=== PATIENT | female | born 2000 | race Caucasian/White ===

== ENCOUNTER 2024-03-23 11:55 | Emergency (ER) | payer OTHER, SELFPAY ==
--- NOTE | ~2024-03-23 | XR_ITS ---
XR chest 2V Ordering provider: Kelsey Morales PA-C History: 23 years Female with . chest tightness, anxiety . Comparison: None. FINDINGS: MEDIASTINUM: The cardiac silhouette is not enlarged. LUNGS: No infiltrates, effusions or pneumothorax. OTHER: No free air under the diaphragm. IMPRESSION: No acute cardiopulmonary pathology. Reviewed, dictated and finalized at location A.
[2024-03-23 12:13] VITALS: BP 126/85; PULSE 120; RESP 16; TEMP 37.2; O2SAT 98
[2024-03-23 12:14] VITALS: BP 126/85; PULSE 120; RESP 16; TEMP 37.2; O2SAT 98
--- NOTE | 2024-03-23 12:19 | ECG_ITS ---
Test Date: 2024-03-23 12:25:29 Measurements Intervals [place] Rate: 123 P: 78 VT: 164 QRS: 47 QRSD: 78 T: 62 QT: 300 QTc: 431 Interpretive Statements SINUS TACHYCARDIA MINOR RIGHT VENTRICULAR CONDUCTION DELAY [RSR (QR) IN V1/V2] ABNORMAL RHYTHM ECG No previous ECG available for comparison Electronically Signed On 03-23-2024 17:14:51 CDT by Jose C Woodruff M.D.
[2024-03-23] MEDS: LORazepam (*CRX) 0.5 MG TABLET PO (13:39)
--- NOTE | 2024-03-23 13:46 | ED.ANXIETY ---
HPI - Anxiety General Chief Complaint: Anxiety Stated Complaint: anxiety Time Seen by Provider: 03/23/24 13:11 Source: patient Mode of arrival: EMS Limitations: no limitations History of Present Illness HPI narrative: Patient is a 23-year-old female who presents the ED via EMS with report of anxiety. Patient reports she had difficulty sleeping last night due to persistent anxiety. She states she has been over thinking everything and cannot seem to relax. She reported having recurrent panic attacks throughout the night into today, which prompted her to call EMS. She does admit to feeling very anxious currently. She takes venlafaxine for her anxiety, is also on Strattera for ADHD. Does see a psychiatrist and was supposed to see them today but was feeling too anxious to go to the appointment. Denies SI/HI, known trigger to anxiety. Does report mild chest tightness earlier today. Related Data Allergies Allergy/AdvReac Type Severity Reaction Status Date / Time No Known Allergies Allergy Verified 03/23/24 13:39 Review of Systems Review of Systems: CONSTITUTIONAL: Denies fever, chills, or sweats. CARDIOVASCULAR: See HPI GASTROINTESTINAL: Denies abdominal pain, nausea, vomiting NEUROLOGIC: Denies headache, dizziness, numbness, or weakness. PSYCHIATRY: See HPI All systems reviewed & are unremarkable except as noted in HPI and below PMFSH Social History Social History Substance use type: former substance user and marijuana Exam Narrative: GENERAL: Anxious appearing, well-nourished, non-toxic, in no acute distress. HEAD: Normocephalic, atraumatic. RESPIRATORY: Airway patent, respirations nonlabored. Clear to auscultation bilaterally, no rales, rhonchi, wheezing. CARDIOVASCULAR: Tachycardic with regular rhythm without murmurs, rubs, or gallops. MUSCULOSKELETAL: Moves all extremities. No gross deformities. SKIN: Warm, dry, normal color. NEURO: A&O X3. Speech clear. No focal deficits. PSYCHIATRIC: Anxious, trembling, trouble sitting still. Course Vital Signs Vital signs: Vital Signs Temperature 98.9 F 03/23/24 12:13 Pulse Rate 120 H 03/23/24 12:13 Respiratory Rate 16 03/23/24 12:13 Blood Pressure 126/85 03/23/24 12:13 Pulse Oximetry 98 03/23/24 12:13 Temperature 98.4 F 03/23/24 14:10 Pulse Rate 85 03/23/24 14:10 Respiratory Rate 16 03/23/24 14:10 Blood Pressure 136/89 03/23/24 14:10 Pulse Oximetry 99 03/23/24 14:10 Oxygen Delivery Room Air 03/23/24 12:14 MDM - Anxiety MDM Narrative Medical decision making narrative: Patient presented to ED with anxiety/ panic attack. Tachycardic upon arrival. In no acute distress. Does appear and admit to being very anxious. EKG with sinus tachycardia, no significant ST changes. Labs unremarkable. Troponin undetectable. Electrolytes within normal range. Urine with 2+ ketones, some RBC, no significant signs of infection. Moderate squamous cells. Sent for culture. Patient denies any urinary complaints. Urine drug screen positive for cannabinoids, otherwise negative. ETOH negative. Chest x-ray clear. Patient was given 0.5 mg Ativan in the ED. She is feeling much better on re-evaluation. Resting comfortably. Vital signs have improved. Tachycardia resolved. She feels much more at ease. Feel she is safe for discharge home at this time. Advised patient to follow closely with psychiatrist for further evaluation. Will supply very small course of Ativan for home use for panic attacks. She continues to deny SI/HI. Given strict return precautions. She is in agreement with plan and feels comfortable going home. D/C in stable condition. Medical Records Attestation: I reviewed the patient's medical records. Lab Data Attestation: I reviewed the patient's lab results. 03/23/24 13:45 03/23/24 13:45 Labs: Lab Results 03/23/24 08/0
[2024-03-23 14:07] LABS: Basophils Absolute Auto 0.1 K/mm3 (0.0-0.1); Basophils Percent Auto 0.6 % (0.2-1.2); Eosinophils Absolute Auto 0.1 K/mm3 (0-0.3); Eosinophils Percent Auto 0.7 % (0-4.4); Hemoglobin 15.1 g/dL (12.0-15.0); Immature Granulocyte Absolute 0.03 K/mm3 (0.00-0.031); Immature Granulocyte Percent A 0.4 % (0-0.5); Lymphocytes Absolute Auto 1.67 K/mm3 (0.9-3.2); Lymphocytes Percent Auto 20.4 % (18.3-44.2); Mean Corpuscular HGB Conc 32.8 g/dl (32-36); Mean Corpuscular Volume 88.5 fl (80-100); Mean Platelet Volume 10.2 fl (7.4-10.4); Monocytes Absolute Auto 0.5 K/mm3 (0.1-0.6); Monocytes Percent Auto 6.5 % (2.6-8.5); Neutrophils Absolute Auto 5.8 K/mm3 (1.3-6.7); Neutrophils Percent Auto 71.4 % (45.5-73.1); Platelet Count Result 306 k/mm3 (150-375); Red Cell Distribution Width 12.8 % (11.5-14.5); White Blood Count 8.2 K/mm3 (4.5-10.0)
[2024-03-23 14:10] VITALS: BP 136/89; PULSE 85; RESP 16; TEMP 36.9; O2SAT 99
[2024-03-23 14:15] LABS: Ethanol < 10 mg/dL (<10)
[2024-03-23 14:16] LABS: Alanine Aminotransferase 21 U/L (6-35); Albumin Level 4.8 g/dL (3.5-5.1); Alkaline Phosphatase 61 U/L (38-126); Anion Gap 12 mmol/L (4-12); Aspartate Amino Transferase 24 U/L (14-36); Bilirubin,Total 0.7 mg/dL (0.2-1.3); Blood Urea Nitrogen 11 mg/dL (7-17); Calcium 9.8 mg/dL (8.4-10.2); Carbon Dioxide 24 mmol/L (22-30); Chloride 104 mmol/L (98-107); Estimated CRCL calculation 82 ml/min; Estimated Glomerular Filt Rate > 60; Glucose 88 mg/dL (65-110); Potassium 3.9 mmol/L (3.4-5.0); Sodium 140 mmol/L (137-145)
[2024-03-23 14:27] LABS: Troponin I < 0.012 ng/mL (0.000-0.034)
[2024-03-23 14:39] LABS: BEDSIDEPREGUCG Negative
[2024-03-23 14:48] LABS: Add Urine Microscopic? YES; Appearance Urine Turbid (Clear); Bacteria Urine 2+ /hpf; Bilirubin Urine Negative (Negative); Blood Urine 2+ (Negative); Color Urine Yellow (Yellow); Glucose Urine UA Negative (Negative); Ketones Urine 2+ mg/dL (Negative); Leukocyte Esterase Ur Trace LEU/UL (Negative); Nitrate Urine Negative (Negative); Non Pathogenic Casts 0-2; Protein Urine Trace mg/dL (Negative); Specific Grav Ur 1.022 (1.001-1.035); Squamous Epithelial Cell Urine Moderate /hpf (Few); WBC Urine 0-5 /hpf (0-3)
[2024-03-23 15:29] LABS: Amphetamine Screen Urine Negative (Negative); Barbiturate Screen Urine Negative (Negative); Benzodiazepines Screen Urine Negative (Negative); Cannabinoid Screen Urine Positive (Negative); Cocaine Screen Urine Negative (Negative); Methadone Screen Urine Negative (Negative); Opiate Screen Urine Negative (Negative); Phencyclidine Screen Urine Negative (Negative)
[2024-03-23 15:53] LABS: Magnesium 2.2 mg/dL (1.6-2.3)
== END 2024-03-23 15:50 | disposition home or self-care (01) ==
PROVIDERS: Emergency Medicine; Emergency Provider Physician Assistant
DX: F41.9 Anxiety disorder, unspecified (principal); R00.0 Tachycardia, unspecified
CPT/HCPCS: 36415; 71046; 80053; 80307; 81001; 81025; 83735; 84484; 85025; 93005; 99284; A9270

== ENCOUNTER 2025-02-04 09:21 | Emergency (ER) | payer OTHER, SELFPAY ==
[2025-02-04 09:32] VITALS: BP 119/78; PULSE 79; RESP 14; TEMP 36.6; O2SAT 100
[2025-02-04] MEDS: TETANUS,DIPHTHERIA,AC PERTUSSIS ADULT (0.5 ML) BOOSTRIX IM (10:20)
[2025-02-04] MEDS: LIDOCAINE 1% LOCAL INJ 2 ML AMPUL 4 ML INFILTRATE (10:20)
--- NOTE | 2025-02-04 11:32 | ED_ITS ---
HPI - Wound/Laceration General Chief Complaint: Wound/Laceration Stated Complaint: Fell through shower, have piece of glass left hand Time Seen by Provider: 02/04/25 10:00 Source: patient, family and RN notes reviewed Mode of arrival: ambulatory Limitations: no limitations History of Present Illness HPI narrative: 24-year-old female presents [facility] complaining of laceration of left hand and fall. Patient slipped and fell in the shower, when she fell she broke the glass shower door as well. Patient denies hitting her head, neck pain, back pain, or any loss of consciousness. Patient reports she has multiple pieces of glass to believes imbedded in her skin. Patient has a piece of glass in the palm of her left hand and a [place] class imbedded in her right medial thigh. Patient is unsure of her tetanus status. Patient has a laceration on left palm of her hand. Patient has numerous small scratches in cuts throughout her extremities. Patient denies any uncontrolled bleeding, numbness, tingling, or any other injuries. Related Data Home Medications ?Medication ?Instructions ?Recorded ?Confirmed ?Last Taken ?Type olanzapine 2.5 mg tablet mg 02/04/25 Unknown History vilazodone 40 mg tablet mg 02/04/25 Unknown History Allergies Allergy/AdvReac Type Severity Reaction Status Date / Time tree nut Allergy Severe Swelling Verified 02/04/25 09:42 Review of Systems Review of Systems: CONSTITUTIONAL: Denies fever, chills, or sweats. EYES: Denies visual changes, redness, or discharge. ENT: Denies rhinorrhea, congestion, sore throat, or otalgia. CARDIOVASCULAR: Denies chest pain, palpitations, or edema. RESPIRATORY: Denies cough or dyspnea. GASTROINTESTINAL: Denies abdominal pain, nausea, vomiting, or diarrhea. GENITOURINARY: Denies dysuria or hematuria. SKIN: Denies rash or itching. Positive for laceration retained foreign body. MUSCULOSKELETAL: Denies back pain, joint pain, or myalgia. NEUROLOGIC: Denies headache, numbness, or weakness. PSYCHIATRIC: Denies anxiety or depression. All other systems reviewed are negative, except as documented in HPI. [facility] Social History Social History Substance use type: former substance user and marijuana Comments At the time of my signature, I reviewed and agree with the nursing past medical, surgical, social, and family history. There is no relevant family history pertinent to the patient complaint. Exam Narrative: GENERAL: This is a well-nourished, well-developed adult, in no apparent distress. They are non ill-appearing, nontoxic appearing. HEAD: normocephalic, atraumatic. EYES: Sclera clear/white. Conjunctiva normal. Vision is grossly intact. Extraocular movements intact. Pupils PERRLA. No subconjunctival hemorrhage or hyphema. EARS: External ears normal, Hearing grossly intact. NOSE: External nose normal THROAT: Mucous membranes moist, NECK: Neck supple, CARDIOVASCULAR: Regular rate and rhythm RESPIRATORY: Respiratory rate normal, respiratory effort nonlabored, no respiratory distress SKIN: Numerous superficial scratches, cuts, lacerations throughout the patient's upper and lower extremities. These wounds are well approximated and closed. There is a laceration measuring approximately 1 cm long to the patient's left palmar surface of hand. There is retained foreign body that appears to be glass in the left hand. There is another retained foreign body in the right lower medial thigh that appears to be glass. Neurovascular status intact distal to injuries. Patient can wiggle her left fingers, can make a fist, stop sign, thumbs-up sign. Patient can feel me touch the tips of her fingers. Put a refill less than 2 seconds. Left radial pulse 2 +and palpable. NEURO: awake, alert, and oriented to person, place and time. There were no obvious focal neurologic abnormalities. EXTREMITIES: No joint tenderness, effusion, or edema noted. BACK: Nontender without deformity. Course Course Emergency Course: Portions of this record may have been created with voice recognition software Level of Care: Express Care Visit Vital Signs Vital signs: Vital Signs Temperature 97.8 F 02/04/25 09:32 Pulse Rate 79 02/04/25 09:32 Respiratory Rate 14 02/04/25 09:32 Blood Pressure 119/78 02/04/25 09:32 Pulse Oximetry 100 02/04/25 09:32 Oxygen Delivery Room Air 02/04/25 09:32 Temperature 97.8 F 02/04/25 09:32 Pulse Rate 79 02/04/25 09:32 Respiratory Rate 14 02/04/25 09:32 Blood Pressure 119/78 02/04/25 09:32 Pulse Oximetry 100 02/04/25 09:32 Oxygen Delivery Room Air 02/04/25 09:32 Reviewed Procedures Foreign Body Removal Foreign Body #1: Foreign Body Removal Date: 02/04/25 Foreign Body Removal Time: 10:30 Time Out Performed: no Site: left and hand Description of foreign body: other (Class) Sedation/Analgesia: none Technique: removal with forceps Confirmed by:: direct visualization Complications: none Post-procedure exam: awake, alert Neurovascular: normal distal pulse, normal capillary fill, distal light touch sensation intact, distal motor function normal, no signs of compartment syndrome and no change from pre-procedure Foreign Body Removal Narrative: Last measured approximate 1 cm x 1 cm. Patient tolerated procedure well Foreign Body #2: Foreign Body Removal Date: 02/04/25 Foreign Body Removal Time: 10:45 Time Out Performed: no Site: right and lower extremity Description of foreign body: other (Class) Sedation/Analgesia: none Technique: manual removal and irrigation Confirmed by:: direct visualization Complications: none Post-procedure exam: awake, alert Neurovascular: normal distal pulse, normal capillary fill, distal light touch sensation intact, distal motor function normal, no signs of compartment syndrome and no change from pre-procedure Foreign Body Removal Narrative: Successful removal of foreign body. Superficial use a glass was imbedded in skin. Very small piece of glass. Piece of glass measuring less than 0.5 cm. Laceration Laceration 1: Date: 02/04/25 Time: 10:30 Site: hand Side (If applicable): left Size (cm): 1 Description: linear and irregular Depth: simple, single layer Local Anesthetic: lidocaine 1% Amount of anesthesia used (mL): 2 Pre-repair: wound explored, irrigated extensively and extensive debridement ====== Skin Level ====== Skin layer closed with: nylon Size (cm): 5-0 Number of sutures: 3 Technique: simple, interrupted ====== Subcutaneous Layer ====== ====== Muscle Layer ====== ====== Tendon Layer ====== Dressing: Non adherent dressing applied. Patient tolerated procedure well Piece of glass removed from patient's laceration, glasses measures proximally 1 cm x 1 cm. Wound bed was fully explored, no other retained foreign body was present. MDM - Wound/Laceration MDM Narrative Medical decision making narrative: Successful removal foreign bodies the patient's left palm and right medial lower thigh. Foreign bodies her pieces of glass that are consistent with injury she had today from the shower glass. Neurovascular status intact after removal of foreign bodies. No other foreign bodies visualized. Successful laceration repaired patient's left palm. Patient's tetanus is updated today. Prophylactically treat for infection prevention with cephalexin. Discussed physical exam findings. Advised supportive measures and signs/symptoms to go to the ER. Pt is appropriate for outpt treatment and f/u. Differential Diagnosis Differential diagnosis: Likely laceration, abrasion and other (Retained foreign body) Critical Care Time Critical Care Time Critical Care Time: No Discharge Plan Discharge Clinical Impression: Laceration Foreign body hand Qualifiers: Encounter type: initial encounter Laterality: left Qualified Code(s): S60.552A - Superficial foreign body of left hand, initial encounter Foreign body of leg, right, superficial Qualifiers: Encounter type: initial encounter Qualified Code(s): S80.851A - Superficial foreign body, right lower leg, initial encounter Patient Disposition: Home Condition: Stable Instructions: Laceration (ED), Soft Tissue Foreign Body (ED) Additional Instructions: The pieces of glass in your skin were successfully removed today. Your stitches will need to be removed in 10-14 days. ?Wear the dressing that has been applied for the first 24 hours to allow a scab to start forming. ?After this, you may remove and wash as normal with soap and water. ?Do NOT wash with peroxide or alcohol. ?Do NOT apply antibiotic ointment. Avoid any dirty water such as pools, bath tubs, or lakes until your wounds and scratches have healed completely. Take cephalexin as directed for infection prevention. Take tylenol or ibuprofen at home for pain. ?Follow up with your PCP or go to the ER with any signs of infection such as redness, swelling, increased pain, or drainage. ? Patient Language: Wallisian Prescriptions: New cephalexin 500 mg capsule 500 mg PO Q6H 7 Days Qty: 28 0RF No Action olanzapine 2.5 mg tablet vilazodone 40 mg tablet lorazepam [Ativan] 0.5 mg tablet 0.5 mg PO DAILY PRN (Reason: anxiety) Qty: 3 0RF Follow-up/Referrals: Zunilda,Angeles Gant APRN [Primary Care Provider] - Time of Disposition: 11:08
== END 2025-02-04 11:15 | disposition home or self-care (01) ==
PROVIDERS: PCP Nurse Practitioner
DX: S61.422A Laceration with foreign body of left hand, initial encounter (principal); S70.351A Superficial foreign body, right thigh, initial encounter; W18.2XXA Fall in (into) shower or empty bathtub, initial encounter; Z23 Encounter for immunization
CPT/HCPCS: 12001; 90471; 90715; 99213; G0463; J2003